=== PATIENT | female | born 1980 | race Caucasian/White ===

== ENCOUNTER → 2016-10-11 | Day surgery (SDC) | payer OTHER ==
[~2016-10-11] VITALS: Ht 165.1 cm; Wt 77.1 kg
[~2016-10-11] MED LIST: COLA100C2; FERR325T; GLYCOPYRROLATE INJ 0.2 MG/ML 2 ML VIAL As Ordered ONE; HYDROmorphone HCL 2 MG/ML 1ML VIAL (J1170) As Ordered ONE; IBUPROFEN 600 MG TAB PO PRN; IRON PILL; KETOROLAC 60 MG/2 ML VIAL (J1885) As Ordered ONE; LABETALOL HCL 100 MG/20 ML VIAL As Ordered ONE; LOSA100T37 PO; LR 1,000 ML IV SCH; MEDR1VL IM; METHERGINE; METOCLOPRAMIDE INJ 10MG/2ML VIAL (J2765) As Ordered ONE; MIDAZOLAM INJ 2 MG/2 ML VIAL (J2250) As Ordered ONE; NEOSTIGMINE 1MG/ML 5 ML SYRINGE (J2710) As Ordered ONE; NORCO, ANEXSIA 5/325MG TABLET (HYDROcodone/ACETAMINOPHEN) PO PRN; ONDANSETRON 4MG/2ML VIAL (J2405) As Ordered ONE; ONDANSETRON 4MG/2ML VIAL (J2405) IV PRN; PERCOCET 5MG/325MG TAB PO PRN; PRENATAL VITAMIN; PROPOFOL 500 MG/50 ML VIAL As Ordered ONE; PROV10TA; WELLTAB40 PO; dexameTHASONE 4 MG/ML 1ML VIAL (J1100) As Ordered ONE; ePHEDrine SULFATE 25 MG/5 ML(5MG/ML) SYRINGE As Ordered ONE; fentaNYL 100 MCG/2 ML INJECTION (J3010) As Ordered ONE; fentaNYL 100 MCG/2 ML INJECTION (J3010) IV PRN
[2016-10-11 15:39] LABS: CONTROL LINE UCG INT CTR LINE PRESENT
[2016-10-11 20:15] VITALS: BP 147/18
--- NOTE | 2016-10-12 11:16 | RO ---
DATE OF PROCEDURE: 10/11/2016 PREPROCEDURE DIAGNOSIS/INDICATION FOR SURGERY: Desire for permanent sterilization. POSTPROCEDURE DIAGNOSIS: Desire for permanent sterilization. PROCEDURE: Laparoscopic bilateral tubal ligation by bipolar cautery. SURGEON: Alexa Damico MD GENERAL INTERN: ANESTHESIA: General endotracheal anesthesia. DESCRIPTION OF PROCEDURE AND FINDINGS: Cookie was brought to the operating room where sufficient general endotracheal anesthesia was induced. She was prepped, draped and positioned in the usual sterile fashion with the weighted speculum placed, the bladder emptied and then the cervix grasped with a single toothed tenaculum. Then the uterus sounded to 7 and then dilation initiated. About half way through dilation, I felt a little give and felt that there might be a little bit of a perforation. After dilating adequately, I did sound again and found that yes there was a greater uterine length, consistent with perforation. I was careful to place the manipulator based on the original sound and then we turned our attention to the laparoscopy, where a transverse semilunar incision was made below the umbilicus. Sharp and blunt dissection were continued through the subcutaneous tissues to the level of the rectus fascia, which was transversely incised, secured with #0 Vicryl retention sutures. The peritoneum was then entered under direct visualization and S retractors were placed and the peritoneal cavity visualized and then Filiberto cannula was placed, again under direct visualization with an open laparoscopic technique. It was secured in placed with 0 Vicryl retention sutures and CO2 insufflation was then begun. After adequate CO2 insufflation, the peritoneal cavity was visualized. There were normal shiny peritoneal surfaces throughout. There was no excrescence, exudate, nor ascites. There was, at the fundus in the midline, a clot consistent with perforation but no continued bleeding. Pictures were taken before and after the cauterization of the tubes and these also show that there was no evidence of significant bleeding from the small perforation in the uterus, which had limited import given the patient's tubal ligation. Using the operative port of the laparoscope, the Kleppinger was passed. Bipolar cautery was used to cauterize the tubes in four separate locations along the tubes with full cauterization and photographic confirmation of the tubal ligation taken after the cautery of the tubes. There was no evidence of injury to the intestine, ureters, or other organs. No other lesions seen. There was no evidence of persistent bleeding at the fundus at the site of the small perforation. The procedure was then ended. Estimated blood loss for the procedure was about 2 mL. Fluid replacement was crystalloid. Complications: Uterine perforation, not requiring repair. Condition and Disposition: Cookie tolerated the procedure well and was recovering in the recovery room in good condition.
== END | disposition home or self-care (01) ==
LOC: M SDC 12:15
PROVIDERS: ATTEND Obstetrics & Gynecology
DX: Z30.2 Encounter for sterilization (principal); I10 Essential (primary) hypertension; F17.290 Nicotine dependence, other tobacco product, uncomplicated; Z88.1 Allergy status to other antibiotic agents; Z79.899 Other long term (current) drug therapy
CPT/HCPCS: 58670; 84703; J1100; J1170; J1885; J2250; J2405; J2710; J2765; J3010

== ENCOUNTER → 2022-09-12 | Outpatient (REF) | payer OTHER ==
[~2022-09-12] MED LIST changes: -GLYCOPYRROLATE INJ 0.2 MG/ML 2 ML VIAL As Ordered ONE; -HYDROmorphone HCL 2 MG/ML 1ML VIAL (J1170) As Ordered ONE; -IBUPROFEN 600 MG TAB PO PRN; -KETOROLAC 60 MG/2 ML VIAL (J1885) As Ordered ONE; -LABETALOL HCL 100 MG/20 ML VIAL As Ordered ONE; -LOSA100T37 PO; +LOSA100T5 PO; -LR 1,000 ML IV SCH; -METOCLOPRAMIDE INJ 10MG/2ML VIAL (J2765) As Ordered ONE; -MIDAZOLAM INJ 2 MG/2 ML VIAL (J2250) As Ordered ONE; -NEOSTIGMINE 1MG/ML 5 ML SYRINGE (J2710) As Ordered ONE; -NORCO, ANEXSIA 5/325MG TABLET (HYDROcodone/ACETAMINOPHEN) PO PRN; -ONDANSETRON 4MG/2ML VIAL (J2405) As Ordered ONE; -ONDANSETRON 4MG/2ML VIAL (J2405) IV PRN; -PERCOCET 5MG/325MG TAB PO PRN; -PROPOFOL 500 MG/50 ML VIAL As Ordered ONE; -dexameTHASONE 4 MG/ML 1ML VIAL (J1100) As Ordered ONE; -ePHEDrine SULFATE 25 MG/5 ML(5MG/ML) SYRINGE As Ordered ONE; -fentaNYL 100 MCG/2 ML INJECTION (J3010) As Ordered ONE; -fentaNYL 100 MCG/2 ML INJECTION (J3010) IV PRN
[2022-09-14 14:08] LABS: ANTINUCLEAR ANTIBODIES DIRECT Negative (Negative)
== END ==
LOC: M LAB REF 16:22
PROVIDERS: ATTEND Physician Assistant Medical
DX: M79.10 Myalgia, unspecified site (principal)

== ENCOUNTER → 2022-09-18 | Outpatient (CLI) | payer OTHER | LOC: M WUC 08:48 | PROVIDERS: ATTEND Physician Assistant Medical | DX: R06.2 Wheezing (principal) ==